=== PATIENT | male | born 1970 | race Caucasian/White ===

== ENCOUNTER 2023-12-30 12:04 | Emergency (ER) | payer OTHER ==
[~2023-12-30] VITALS: Ht 188 cm; Wt 95.3 kg
[2023-12-30] MEDS ORDERED: CLINDAMYCIN PHOSPHATE 150 MG/ML (300mg) IM STA (14:12)
== END 2023-12-30 14:24 | disposition home or self-care (01) ==
LOC: ER 12:04
DX: L03.115 Cellulitis of right lower limb (principal)